=== PATIENT | male | born 1995 | race Caucasian/White ===

== ENCOUNTER 2019-03-02 18:42 | Emergency (ER) | payer OTHER ==
[~2019-03-02] VITALS: Ht 182.9 cm; Wt 61.2 kg
[2019-03-02 18:50] VITALS: BP 113/62
--- NOTE | 2019-03-02 19:55 | RAD ---
Three-view left wrist dated 03/02/2019. No comparison available. Clinical data indication: Pain after fall. FINDINGS: 3 views left wrist show normal bony alignment. No displaced fracture. Ulnar negative variance. No acute osseous or articular abnormality. IMPRESSION: No acute findings. Electronically signed by: Brandon Katz MD (03/02/2019 7:52 PM) [facility]
[2019-03-02] MEDS ORDERED: NAPR-514 PO (20:07)
--- NOTE | 2019-03-02 20:07 | PHYS DOC ---
Past Medical History Past Medical History: Other Additional Past Medical Histor: adhd (ABA MCCRAY APRN) Past Surgical History: No Surgical History (ABA MCCRAY APRN) Alcohol Use: Occasionally Drug Use: None (ABA MCCRAY APRN) Adult General Chief Complaint Chief Complaint: UPPER EXTREMITY PAIN HPI HPI Patient is a 23 year old male who presents to the emergency department with complaints of left wrist pain after he fell at work today. Patient states he was at [facility] when he stepped on something that caused him to slip and fall. Patient denies any loss of consciousness, nausea, vomiting, neck pain, or back pain. He states he is unable to move his wrist due to pain, however, at this time he denies any pain at rest. (ABA MCCRAY APRN) Review of Systems Review of Systems Constitutional: Denies fever or chills [] Eyes: Denies change in visual acuity GI: Denies abdominal pain, nausea, or vomiting Musculoskeletal: Denies back pain; see history of present illness Integument: Denies rash or skin lesions [] Neurologic: Denies headache, focal weakness or sensory changes [] (ABA MCCRAY APRN) Allergies Allergies Allergies Coded Allergies Type Severity Reaction Last Updated Verified No Known Drug Allergies 12/31/13 No (SULAIMAN ELLIS DO) Physical Exam Physical Exam Constitutional: Well developed, well nourished, no acute distress, non-toxic appearance. [] HENT: Normocephalic, atraumatic, bilateral external ears normal, oropharynx moist, no oral exudates, nose normal. [] Eyes: PERRLA, EOMI, conjunctiva normal, no discharge. [] Neck: Normal range of motion, no tenderness, supple, no stridor. [] Cardiovascular:Heart rate regular rhythm, no murmur [] Lungs & Thorax: Bilateral breath sounds clear to auscultation [] Abdomen: Bowel sounds normal, soft, no tenderness, no masses, no pulsatile masses. [] Skin: Warm, dry, no erythema, no rash. [] Back: No tenderness, no CVA tenderness. [] Extremities: No tenderness, no cyanosis, no clubbing, ROM intact, no edema. [] Neurologic: Alert and oriented X 3, normal motor function, normal sensory function, no focal deficits noted. [] Psychologic: Affect normal, judgement normal, mood normal. [] (ABA MCCRAY APRN) Current Patient Data Vital Signs Vital Signs Date Time Temp Pulse Resp B/P (MAP) Pulse Ox O2 Delivery O2 Flow Rate FiO2 03/02/19 18:50 98.2 94 16 113/62 (79) 96 Room Air 98.2 (SULAIMAN ELLIS DO) EKG EKG [] (ABA MCCRAY APRN) Radiology/Procedures Radiology/Procedures PROCEDURE: WRIST 3V LEFT Three-view left wrist dated 03/02/2019. No comparison available. Clinical data indication: Pain after fall. FINDINGS: 3 views left wrist show normal bony alignment. No displaced fracture. Ulnar negative variance. No acute osseous or articular abnormality. IMPRESSION: No acute findings.[] (ABA MCCRAY APRN) Course & Med Decision Making Course & Med Decision Making Pertinent Labs and Imaging studies reviewed. (See chart for details) dx: Left wrist pain X-ray left wrist was negative for any acute findings or fracture. An Ed wrap was applied to the patient's wrist. Prescription written for naproxen. Activity as tolerated. Follow-up with primary care doctor or Dr. Pickens if symptoms persist, return to ER symptoms worsen. Patient verbalized an understanding of home care, medications, follow-up, and return to ED instructions and was in agreement with the plan of care. [] (ABA MCCRAY APRN) Dragon Disclaimer Dragon Disclaimer This electronic medical record was generated, in whole or in part, using a voice recognition dictation system. (ABA MCCRAY APRN) Splinting Splinting : Location: Left wrist Pre-Made Type: Pre-Proc Neuro Vasc Exam: normal Post-Proc Neuro Vasc Exam: normal, unchanged from pre-exam (SULAIMAN ELLIS DO) Departure Departure Impression: Primary Impression: Acute pain of left wrist Disposition: 01 HOME, SELF-CARE Condition: STABLE Referrals: ISHA COLVIN MD (PCP) Patient Instructions: Wrist Pain, [id number] Additional Instructions: Fill prescription(s) and use as directed. Recommend application of ice, elevation, and rest of affected extremity. Wear the Ed wrap that was placed as needed for comfort. Follow-up with your primary care doctor or Dr. Pickens if symptoms persist, return to the ER if your symptoms worsen. Scripts Naproxen (NAPROXEN) 500 Mg Tablet 500 MG PO BID PRN for p for 10 Days, #20 TAB 0 Refills Prov: ABA MCCRAY APRN 03/02/19 Attending Signature Attending Signature I have reviewed the PA/VENEER MARKER's note and plan of care. I was available for consultation as needed during the patient's visit in the emergency department. I agree with the clinical impression, plan, and disposition. (SULAIMAN ELLIS DO) ABA MCCRAY APRN Mar 02, 2019 20:07 SULAIMAN ELLIS DO Mar 05, 2019 18:44
== END 2019-03-02 20:19 | disposition home or self-care (01) ==
LOC: ER 18:42
DX: M25.532 Pain in left wrist (principal); G89.11 Acute pain due to trauma; W18.39XA Other fall on same level, initial encounter; Y93.89 Activity, other specified; Y92.69 Other specified industrial and construction area as the place of occurrence of the external cause; Y99.0 Civilian activity done for income or pay
CPT/HCPCS: 29125; 73110; 99284-25